=== PATIENT | male | born 1995 | race Hispanic/Latino ===

== ENCOUNTER 2017-12-20 17:05 | Emergency (ER) | payer SELFPAY ==
[2017-12-20 17:17] VITALS: BP 148/100
--- NOTE | 2017-12-20 17:45 | EDM.PDOC ---
ED HPI GENERAL MEDICAL PROBLEM - General Chief Complaint: Upper Extremity Injury/Pain Stated Complaint: LF ARM MAY BE BROKE Time Seen by Provider: 12/20/17 17:43 Source of Information: Reports: Patient History Limitations: Reports: No Limitations - History of Present Illness INITIAL COMMENTS - FREE TEXT/NARRATIVE: HISTORY AND PHYSICAL: History of present illness: Patient is a 22-year-old male here with concern of left arm injury. 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 He fell approximately 2-3 feet from the ground. He reports pain in the left elbow. Denies any distal numbness or tingling. Review of systems: As per history of present illness and below otherwise all systems reviewed and negative. Past medical history: As per history of present illness and as reviewed below otherwise noncontributory. Surgical history: As per history of present illness and as reviewed below otherwise noncontributory. Social history: No reported history of drug or alcohol abuse. Family history: As per history of present illness and as reviewed below otherwise noncontributory. Physical exam: General: Patient sitting comfortably in no acute distress and nontoxic appearing HEENT: Atraumatic, normocephalic, pupils reactive, negative for conjunctival pallor or scleral icterus, mucous membranes moist, throat clear, neck supple, nontender, trachea midline. No meningeal signs. Lungs: Clear to auscultation, breath sounds equal bilaterally, chest nontender. Heart: S1S2, regular, negative for clicks, rubs, or overt murmur. Abdomen: Soft, nondistended, nontender. Negative for masses or hepatosplenomegaly. Negative for costovertebral tenderness. Pelvis: Stable nontender. Genitourinary: Deferred. Rectal: Deferred. Extremities: Left elbow is swollen, no pain to palpation but patient reports pain with flexion and extension. Minimal pain in to the proximal forearm. No wrist tenderness or pain with ROM. negative for cords or calf pain. Neurovascular unremarkable. Skin is intact Neuro: Awake, alert, oriented. Cranial nerves II through XII unremarkable. Cerebellum unremarkable. Motor and sensory unremarkable throughout. Exam nonfocal. Notes: Anterior and posterior fat pads of the elbow suggestive occult fracture, CT scan of the elbow ordered Diagnostics: x-ray left shoulder and forearm Elbow CT without contrast Therapeutics: Motrin, patient declined Toradol Long arm splint Prescriptions: None Impression: Radial neck fracture, closed Plan: 1. Motrin and tylenol as needed 2. Follow up with orthopedic provider, please call number provided in the morning to schedule appointment 3. Return to ED as needed as discussed Definitive disposition and diagnosis as appropriate pending reevaluation and review of above. left elbow Pain Score (Numeric/FACES): 5 - Related Data Allergies Allergy/AdvReac Type Severity Reaction Status Date / Time No Known Allergies Allergy Verified 12/20/17 17:17 Home Meds: Home Meds . [No Known Home Meds] 01/24/15 [History] Past Medical History - Past Health History Medical/Surgical History: Denies Medical/Surgical History - Infectious Disease History Infectious Disease History: Reports: Chicken Pox Social & Family History - Family History Family Medical History: Noncontributory - Tobacco Use Smoking Status *Q: Never Smoker Second Hand Smoke Exposure: No - Caffeine Use Caffeine Use: Reports: Energy Drinks - Recreational Drug Use Recreational Drug Use: No Review of Systems - Review of Systems Review Of Systems: ROS reveals no pertinent complaints other than HPI. ED EXAM, GENERAL - Physical Exam Exam: See Below (see dictation) Course - Vital Signs Last Recorded V/S: Last Vital Signs Temp 37.2 C 12/20/17 17:14 Pulse 90 12/20/17 17:14 Resp 16 12/20/17 17:14 BP 148/100 H 12/20/17 17:14 Pulse Ox 95 12/20/17 17:14 - Orders/Labs/Meds Orders: Active Orders 24 hr Category Date Time Status Elbow Min 3V Lt [CR] Stat Exams 12/20/17 17:43 Taken Elbow wo Cont Lt [CT] Stat Exams 12/20/17 19:02 Taken Forearm 2V Lt [CR] Stat Exams 12/20/17 17:44 Taken Meds: Medications Discontinued Medications Generic Name Dose Route Start Last Admin Trade Name Yovana PRN Reason Stop Dose Admin Ibuprofen 800 mg 12/20/17 20:00 12/20/17 20:20 Motrin PO 12/20/17 20:01 800 mg ONETIME ONE Administration Departure - Departure Time of Disposition: 21:03 Disposition: Home, Self-Care 01 Condition: Good Clinical Impression: Fracture of radial neck, closed - Discharge Information Referrals: PCP,None [Primary Care Provider] - Salome Jules MD [Physician] - 1 Week Forms: ED Department Discharge Additional Instructions: The following information is given to patients seen in the emergency department who are being discharged to home. This information is to outline your options for follow-up care. We provide all patients seen in our emergency department with a follow-up referral. The need for follow-up, as well as the timing and circumstances, are variable depending upon the specifics of your emergency department visit. If you don't have a primary care physician on staff, we will provide you with a referral. We always advise you to contact your personal physician following an emergency department visit to inform them of the circumstance of the visit and for follow-up with them and/or the need for any referrals to a consulting specialist. The emergency department will also refer you to a specialist when appropriate. This referral assures that you have the opportunity for follow-up care with a specialist. All of these measure are taken in an effort to provide you with optimal care, which includes your follow-up. Under all circumstances we always encourage you to contact your private physician who remains a resource for coordinating your care. When calling for follow-up care, please make the office aware that this follow-up is from your recent emergency room visit. If for any reason you are refused follow-up, please contact the [facility] Emergency Department at and asked to speak to the emergency department charge nurse. [facility] Specialty Care - Orthopedic Clinic Professional [address], [address] [place] [address] 1. Motrin and tylenol as needed 2. Follow up with orthopedic provider, please call number provided in the morning to schedule appointment 3. Return to ED as needed as discussed - My Orders Last 24 Hours: My Active Orders 12/20/17 17:43 Elbow Min 3V Lt [CR] Stat 12/20/17 17:44 Forearm 2V Lt [CR] Stat 12/20/17 19:02 Elbow wo Cont Lt [CT] Stat - Assessment/Plan Last 24 Hours: My Active Orders 12/20/17 17:43 Elbow Min 3V Lt [CR] Stat 12/20/17 17:44 Forearm 2V Lt [CR] Stat 12/20/17 19:02 Elbow wo Cont Lt [CT] Stat
[2017-12-20] MEDS ORDERED: Ibuprofen 800 MG Tab PO ONE (20:00)
--- NOTE | 2017-12-21 10:34 | CR ---
EXAM DATE: 12/20/17 PATIENT'S AGE: 22 Patient: SARATH ANDERS Facility: [place], [place] Site . Site : 1994 Study: XRay Extremity Left forearm [id number]/25/2018 6:10:55 PM Ordering Physician: Doctor Yoder Final Report: INDICATION: Fell from truck. TECHNIQUE: Three views left elbow. Two views left forearm. FINDINGS: Moderate-sized left elbow effusion. In the setting of trauma such an effusion would raise the concern for an occult fracture. The effusion is noted by presence of a posterior fat pad and elevation of the anterior fat pad of the left elbow. No dislocation of the left elbow. Mild to moderate soft tissue swelling dorsal aspect of left mid and proximal forearm. Left forearm and elbow otherwise unremarkable. Given the presence of the left elbow effusion, would suggest obtaining follow-up films in 7-10 days to exclude an occult fracture involving the left elbow or if clinically desired CT could be performed to exclude such etiology. Dictated by Denny Montejo MD @ Dec 20 2017 6:46PM (Electronic Signature) Report Signed by Proxy. MATILDE
--- NOTE | 2017-12-21 10:35 | CR ---
EXAM DATE: 12/20/17 PATIENT'S AGE: 22 Patient: SARATH ANDERS Facility: [place], [place] Site . Site : 1995 Study: XRay Extremity Left elbow [id number]/[id number]/2018 6:11:21 PM Ordering Physician: Doctor Yoder Final Report: INDICATION: Fell from truck. TECHNIQUE: Three views left elbow. Two views left forearm. FINDINGS: Moderate-sized left elbow effusion. In the setting of trauma such an effusion would raise the concern for an occult fracture. The effusion is noted by presence of a posterior fat pad and elevation of the anterior fat pad of the left elbow. No dislocation of the left elbow. Mild to moderate soft tissue swelling dorsal aspect of left mid and proximal forearm. Left forearm and elbow otherwise unremarkable. Given the presence of the left elbow effusion, would suggest obtaining follow-up films in 7-10 days to exclude an occult fracture involving the left elbow or if clinically desired CT could be performed to exclude such etiology. Dictated by Denny Montejo MD @ Dec 20 2017 6:42PM (Electronic Signature) Report Signed by Proxy. MATILDE
--- NOTE | 2017-12-21 11:18 | CT ---
EXAM DATE: 12/20/17 PATIENT'S AGE: 22 Patient: SARATH ANDERS Facility: [place], [place] Site . Site : 1995 Study: CT Extremity Left [id number]/2018 8:11:46 PM Ordering Physician: Doctor Yoder Final Report: Indication: Left elbow injury Technique: CT left elbow without contrast Comparison: Elbow x-ray 12/20/2017. Findings: Bones: Subtle nondisplaced fracture is present in the neck of the radial head. No other fracture or other osseous abnormality. Joints: Joint effusion is present. Soft tissues: Unremarkable. Impression: Subtle fracture in the neck of the radial head with associated joint effusion. Please note that all CT scans at this facility use dose modulation, iterative reconstruction, and/or weight-based dosing when appropriate to reduce radiation dose to as low as reasonably achievable. Dictated by Bill Cleaning MD @ Dec 20 2017 8:39PM (Electronic Signature) Report Signed by Proxy. MTDD
== END 2017-12-20 21:24 | disposition home or self-care (01) ==
LOC: MW.ED 17:05
DX: S52.132A Displaced fracture of neck of left radius, initial encounter for closed fracture (principal); W19.XXXA Unspecified fall, initial encounter
CPT/HCPCS: 29105; 73080; 73090; 73200; 99284; A9270

== ENCOUNTER 2019-10-14 10:32 | Emergency (ER) | payer SELFPAY ==
[2019-10-14] MEDS ORDERED: Silver Sulfadiazine 1% Crm 400 GM Jar TOP ONE (11:08)
[2019-10-14] MEDS ORDERED: Ketorolac 30 MG/ML SDV IM ONE (11:10)
--- NOTE | 2019-10-14 11:18 | EDM.PDOC ---
ED HPI GENERAL MEDICAL PROBLEM - General Chief Complaint: Burn Stated Complaint: SUNBURN Time Seen by Provider: 10/14/19 11:02 - History of Present Illness INITIAL COMMENTS - FREE TEXT/NARRATIVE: History of present illness: 24-year old male presenting with severe sunburn over the chest and back, sustained 2 days ago. Apparently the patient was at a li and took his shirt off and did not put sunblock on. Shortly after sun exposure the skin blistered. He has been taking ibuprofen without any relief of his pain. Otherwise healthy, no medical history. Review of systems: As per history of present illness and below otherwise all systems reviewed and negative. Past medical history: As per history of present illness and as reviewed below otherwise noncontributory. Surgical history: As per history of present illness and as reviewed below otherwise noncontributory. Social history: No reported history of drug or alcohol abuse. No tobacco Family history: As per history of present illness and as reviewed below otherwise noncontributory. Physical exam: GEN: no acute distress, well appearing HEENT: Atraumatic, normocephalic, mucous membranes moist Neck: supple. Lungs: No respiratory distress. Heart: RRR Back: Sunburn/first-degree burn over upper back Extremities: Atraumatic. Neurovascularly intact. Neuro: Awake, alert, oriented. Neuro Exam nonfocal. Skin: Sunburn over chest and back. Majority first-degree avelar, multiple areas over the upper chest of blistering/second-degree avelar. All areas are tender. The skin does not appear ulcerated. Blisters are intact with no weeping or bleeding, no signs of infection. 6% total body surface area second-degree burn. No third-degree. Diagnostics: Not indicated Therapeutics: Silvadene, Toradol IM MDM: Largely first-degree and some second-degree sunburn with blistering. Pain improved after IM Toradol and Silvadene application. Stable for discharge. Impression: Second degree sun burn Plan: [] Definitive disposition and diagnosis as appropriate pending reevaluation and review of above. back Pain Score (Numeric/FACES): 9 - Related Data Allergies Allergy/AdvReac Type Severity Reaction Status Date / Time No Known Allergies Allergy Verified 10/14/19 11:15 Home Meds: Home Meds . [No Known Home Meds] 01/24/15 [History] Past Medical History - Past Health History Medical/Surgical History: Denies Medical/Surgical History - Infectious Disease History Infectious Disease History: Reports: Chicken Pox Social & Family History - Family History Family Medical History: Noncontributory - Caffeine Use Caffeine Use: Reports: Energy Drinks ED ROS GENERAL - Review of Systems Review Of Systems: See Below (See HPI) ED EXAM, BURN/SMOKE INHALATION - Physical Exam Exam: See Below (See HPI) Course - Vital Signs Text/Narrative:: Severe sunburn, primarily first-degree over chest and back but also 6% BSA second-degree. The patient has already been taking ibuprofen and putting aloe with topical pain reliever in the area without any relief. Will place Silvadene and IM Toradol and reassess. Last Recorded V/S: Last Vital Signs Temp 97.4 F 10/14/19 11:11 Pulse 94 10/14/19 11:11 Resp 16 10/14/19 11:11 BP 153/92 H 10/14/19 11:11 Pulse Ox 98 10/14/19 11:11 - Orders/Labs/Meds Meds: Medications Discontinued Medications Generic Name Dose Route Start Last Admin Trade Name Yovana PRN Reason Stop Dose Admin Ketorolac Tromethamine 30 mg 10/14/19 11:10 10/14/19 11:38 Toradol IM 10/14/19 11:11 30 mg ONETIME ONE Administration Silver Sulfadiazine 400 gm 10/14/19 11:08 10/14/19 11:38 Silvadene 1% Cream 400 Gm TOP 10/14/19 11:09 1 dose ONETIME ONE Administration - Re-Assessments/Exams Free Text/Narrative Re-Assessment/Exam: 10/14/19 11:59 The patient is now feeling well. He reports his pain is now improved after the Silvadene applied and the Toradol IM. Discussed plan for pain control. The patient had been taking ibuprofen total 800 mg over the course of the day. Discussed with the patient increasing pain medication dosing and doing Tylenol 500 mg x 2 every 8 hours interspersed with ibuprofen 600 mg every 8 hours so that he is taking 1 or the other medication every 4 hours throughout the day to achieve better pain control. Discussed close monitoring of the blistering and avoidance of attempting to pop the blisters. Discussed plan for close monitoring to see if any infection develops. Voiced understanding of all of the above. Departure - Departure Time of Disposition: 12:00 Disposition: Home, Self-Care 01 Clinical Impression: Sunburn of second degree Second degree burn of chest wall Qualifiers: Encounter type: initial encounter Qualified Code(s): T21.21XA - Burn of second degree of chest wall, initial encounter - Discharge Information Instructions: Pain Medicine Instructions, [id number], Second-Degree Burn, Adult, Sunburn, Adult, [id number] Referrals: PCP,None [Primary Care Provider] - Forms: ED Department Discharge Additional Instructions: For better pain control, please take Tylenol 500 mg, 2 tabs at a time every 8 hours. In between these doses, at the 4-hour galileo, you may take 3 regular strength ibuprofen/Advil 200 mg tablets for a total of 600 mg every 8 hours as well. You will achieve better pain control with this regimen. You may also apply the Silvadene to the skin that is burned. Do not pop or break open the blisters. If the blistered skin starts to appear infected or have any yellow or greenish discharge, please see a physician or return to the emergency department immediately for reevaluation. The following information is given to patients seen in the emergency department who are being discharged to home. This information is to outline your options for follow-up care. We provide all patients seen in our emergency department with a follow-up referral. The need for follow-up, as well as the timing and circumstances, are variable depending upon the specifics of your emergency department visit. If you don't have a primary care physician on staff, we will provide you with a referral. We always advise you to contact your personal physician following an emergency department visit to inform them of the circumstance of the visit and for follow-up with them and/or the need for any referrals to a consulting specialist. The emergency department will also refer you to a specialist when appropriate. This referral assures that you have the opportunity for follow-up care with a specialist. All of these measure are taken in an effort to provide you with optimal care, which includes your follow-up. Under all circumstances we always encourage you to contact your private ph ysician who remains a resource for coordinating your care. When calling for follow-up care, please make the office aware that this follow-up is from your recent emergency room visit. If for any reason you are refused follow-up, please contact the [facility] Emergency Department at and asked to speak to the emergency department charge nurse. [facility] - Primary Care [address] [place] [id number] [facility] [address] [place] [id number] Sepsis Event Note (ED) - Focused Exam Vital Signs: Vital Signs Temp Pulse Resp BP Pulse Ox 10/14/19 11:11 97.4 F 94 16 153/92 H 98
[2019-10-14 12:18] VITALS: BP 143/93; PULSE 85
== END 2019-10-14 12:08 | disposition home or self-care (01) ==
LOC: MW.ED 10:32
DX: L55.1 Sunburn of second degree (principal)
CPT/HCPCS: 96372; 99282; A9270-GY; J1885

== ENCOUNTER 2020-08-05 10:32 | Emergency (ER) | payer SELFPAY ==
--- NOTE | 2020-08-05 11:16 | EDM.PDOC ---
ED HPI GENERAL MEDICAL PROBLEM - General Chief Complaint: Lower Extremity Injury/Pain Stated Complaint: L ANKLE SWOLLEN Time Seen by Provider: 08/05/20 10:46 Source of Information: Reports: Patient History Limitations: Reports: No Limitations - History of Present Illness INITIAL COMMENTS - FREE TEXT/NARRATIVE: Patient is a 25-year-old male no past history presents today for leg ankle pain. Patient that she was climbing down a ladder when he twisted his ankle. Patient has some swelling. Is been 2 days. The swelling is slightly improved the patient also control the pain with Tylenol at home. Patient has no other injuries from the event or no other complaints. left ankle Pain Score (Numeric/FACES): 3 - Related Data Allergies Allergy/AdvReac Type Severity Reaction Status Date / Time No Known Allergies Allergy Verified 08/05/20 10:49 Home Meds: Home Meds . [No Known Home Meds] 01/24/15 [History] Past Medical History - Past Health History Medical/Surgical History: Denies Medical/Surgical History HEENT History: Reports: None Cardiovascular History: Reports: None Respiratory History: Reports: None Gastrointestinal History: Reports: None Genitourinary History: Reports: None Musculoskeletal History: Reports: None Neurological History: Reports: None Psychiatric History: Reports: None Endocrine/Metabolic History: Reports: None Hematologic History: Reports: None Immunologic History: Reports: None Oncologic (Cancer) History: Reports: None Dermatologic History: Reports: None - Infectious Disease History Infectious Disease History: Reports: Chicken Pox - Past Surgical History Head Surgeries/Procedures: Reports: None HEENT Surgical History: Reports: None Cardiovascular Surgical History: Reports: None Respiratory Surgical History: Reports: None GI Surgical History: Reports: None Male Surgical History: Reports: None Endocrine Surgical History: Reports: None Neurological Surgical History: Reports: None Musculoskeletal Surgical History: Reports: None Oncologic Surgical History: Reports: None Dermatological Surgical History: Reports: None Social & Family History - Family History Family Medical History: No Pertinent Family History - Tobacco Use Tobacco Use Status *Q: Never Tobacco User Second Hand Smoke Exposure: No - Caffeine Use Caffeine Use: Reports: None - Recreational Drug Use Recreational Drug Use: No Review of Systems - Review of Systems Review Of Systems: See Below Constitutional: Reports: No Symptoms Eyes: Reports: No Symptoms Ears: Reports: No Symptoms Nose: Reports: No Symptoms Mouth/Throat: Reports: No Symptoms Respiratory: Reports: No Symptoms Cardiovascular: Reports: No Symptoms GI/Abdominal: Reports: No Symptoms Genitourinary: Reports: No Symptoms Musculoskeletal: Reports: Foot Pain Skin: Reports: No Symptoms Neurological: Reports: No Symptoms Psychiatric: Reports: No Symptoms ED EXAM, GENERAL - Physical Exam Exam: See Below Exam Limited By: No Limitations General Appearance: Alert, WD/WN, No Apparent Distress Respiratory/Chest: No Respiratory Distress, Lungs Clear Cardiovascular: Normal Peripheral Pulses GI/Abdominal: Normal Bowel Sounds Extremities: Normal Inspection, Normal Range of Motion, Non-Tender, Joint Swelling Neurological: Alert, Oriented, Normal Gait Course - Vital Signs Last Recorded V/S: Last Vital Signs Temp 97.5 F 08/05/20 10:49 Pulse 74 08/05/20 10:49 Resp 18 08/05/20 10:49 BP 149/96 H 08/05/20 10:49 Pulse Ox 99 08/05/20 10:49 - Orders/Labs/Meds Orders: Active Orders 24 hr Category Date Time Status Ankle Min 3V Lt [CR] Stat Exams 08/05/20 11:14 Taken - Re-Assessments/Exams Free Text/Narrative Re-Assessment/Exam: 08/05/20 12:20 X-ray is negative patient will be placed in Gregory wrap and discharged home. 08/05/20 12:23 What you are ordering gregory wrap Why you are ordering it support and pain relief How it will benefit patient support and pain relief How long is patient to use it 7-10 days Departure - Departure Time of Disposition: 12:20 Disposition: Home, Self-Care 01 Condition: Good Clinical Impression: Ankle sprain - Discharge Information *PRESCRIPTION DRUG MONITORING PROGRAM REVIEWED*: Not Applicable *COPY OF PRESCRIPTION DRUG MONITORING REPORT IN PATIENT CORINNE: Not Applicable Instructions: Ankle Sprain, [id number] Referrals: PCP,None [Primary Care Provider] - Forms: ED Department Discharge Additional Instructions: The following information is given to patients seen in the emergency department who are being discharged to home. This information is to outline your options for follow-up care. We provide all patients seen in our emergency department with a follow-up referral. The need for follow-up, as well as the timing and circumstances, are variable depending upon the specifics of your emergency department visit. If you don't have a primary care physician on staff, we will provide you with a referral. We always advise you to contact your personal physician following an emergency department visit to inform them of the circumstance of the visit and for follow-up with them and/or the need for any referrals to a consulting specialist. The emergency department will also refer you to a specialist when appropriate. This referral assures that you have the opportunity for follow-up care with a specialist. All of these measure are taken in an effort to provide you with optimal care, which includes your follow-up. Under all circumstances we always encourage you to contact your private physician who remains a resource for coordinating your care. When calling for follow-up care, please make the office aware that this follow-up is from your recent emergency room visit. If for any reason you are refused follow-up, please contact the [facility] at and asked to speak to the emergency department charge nurse. Please follow up with your primary care physician. If you do not have a primary care physician, see below: [facility] [address] [place] [id number] [facility] [address] [place] [address] You were seen today for ankle pain. Injury looks to be sprain on x-ray. We will provide you with a Gregory wrap and you can be discharged home. You have any increased pain swelling difficulty walking please return to the ED. Sepsis Event Note (ED) - Evaluation Sepsis Screening Result: No Definite Risk - Focused Exam Vital Signs: Vital Signs Temp Pulse Resp BP Pulse Ox 08/05/20 10:49 97.5 F 74 18 149/96 H 99 - My Orders Last 24 Hours: My Active Orders 08/05/20 11:14 Ankle Min 3V Lt [CR] Stat - Assessment/Plan Last 24 Hours: My Active Orders 08/05/20 11:14 Ankle Min 3V Lt [CR] Stat Plan: Patient is a 25-year-old male presents today for left ankle pain. Patient has some swelling exam but no tenderness. Patient also ambulated without issue. Patient have x-ray and likely discharge home.
--- NOTE | 2020-08-05 12:22 | CR ---
INDICATION: Sprain. TECHNIQUE: Three views of the left ankle. COMPARISON: None. FINDINGS: Moderate soft tissue swelling laterally. No fracture or other abnormality. IMPRESSION: Lateral ankle sprain. Dictated by Elie Porter MD @ 08/05/2020 12:21:[address] Elie Porter @ Aug 05 2020 12:21PM
[2020-08-05 12:38] VITALS: BP 133/77; PULSE 75
== END 2020-08-05 12:39 | disposition home or self-care (01) ==
LOC: MW.ED 10:32
DX: S93.402A Sprain of unspecified ligament of left ankle, initial encounter (principal); X50.1XXA Overexertion from prolonged static or awkward postures, initial encounter
CPT/HCPCS: 73610-26-LT; 73610-LT; 99283